=== PATIENT | female | born 1965 | race Two or more races ===

== ENCOUNTER 2020-03-31 10:13 | Outpatient (REF) | payer OTHER, SELFPAY | END 2020-03-31 10:14 | disposition home or self-care (01) | LOC: HO.LAB 10:13 | PROVIDERS: Visit Provider Internal Medicine | DX: Z20.822 Contact with and (suspected) exposure to COVID-19 (principal) | CPT/HCPCS: 36415; C9803; U0003 ==

== ENCOUNTER 2020-12-01 13:38 | Outpatient (REF) | payer OTHER, SELFPAY ==
--- NOTE | ~2020-12-01 | MM_ITS ---
EXAMINATION: MM SCREENING DIGITAL BREAST TOMOSYNTHESIS, BILATERAL CLINICAL INFORMATION: Screening. Asymptomatic. The lifetime risk of breast cancer based on the Tyrer-Cuzick Model is 6%. COMPARISON: Mammography: 11/18/2017, 11/12/2016, 07/23/2015 TECHNIQUE: Digital breast tomosynthesis is performed in both the craniocaudal and mediolateral oblique views along with computer-aided detection (CAD). Synthesized 2D images are generated from the tomosynthesis. FINDINGS: There are scattered areas of fibroglandular density (ACR BI-RADS breast composition Category b). There are no significant masses, abnormal calcifications, or other abnormalities. The axilla are unremarkable. There is a small dermal lesion overlying the upper outer right breast. MM/MM tomosynthesis screening BI IMPRESSION: No mammographic evidence of malignancy. ASSESSMENT: BI-RADS 2: Benign RECOMMENDATION: Routine annual mammography screening. This patient's information was entered into a reminder system with a target due date for their next mammogram.
== END 2020-12-01 13:39 | disposition home or self-care (01) ==
LOC: HO.MAMMO 13:38
PROVIDERS: Visit Provider Internal Medicine Geriatric Medicine
DX: Z12.31 Encounter for screening mammogram for malignant neoplasm of breast (principal)
CPT/HCPCS: 77063; 77067

== ENCOUNTER 2021-03-12 13:36 | Outpatient (REF) | payer OTHER, SELFPAY ==
[2021-03-12 16:04] LABS: Binax Now Covid-19 Ag Positive (Negative)
[2021-03-12 16:05] LABS: Binax Internal Control QC Valid
== END 2021-03-12 13:37 | disposition home or self-care (01) ==
LOC: HO.LAB 13:36
PROVIDERS: Visit Provider Internal Medicine
DX: Z20.822 Contact with and (suspected) exposure to COVID-19 (principal)
CPT/HCPCS: 36415; C9803

== ENCOUNTER 2021-12-18 15:11 | Outpatient (REF) | payer OTHER, SELFPAY ==
--- NOTE | ~2021-12-18 | MM_ITS ---
EXAMINATION: MM SCREENING DIGITAL BREAST TOMOSYNTHESIS, BILATERAL CLINICAL INFORMATION: Screening. Asymptomatic. The lifetime risk of breast cancer based on the Tyrer-Cuzick Model is 6%. COMPARISON: Mammography: 12/01/2020, 11/18/2017, 11/12/2016 TECHNIQUE: Digital breast tomosynthesis is performed in both the craniocaudal and mediolateral oblique views along with computer-aided detection (CAD). Synthesized 2D images are generated from the tomosynthesis. Additional right CC view is provided. FINDINGS: There are scattered areas of fibroglandular density (ACR BI-RADS breast composition Category b). There are no significant masses, abnormal calcifications, or other abnormalities. Parenchymal pattern is similar to prior studies. No developing density or architectural abnormality. Dermal lesion is again noted overlying the upper right breast. MM/MM tomosynthesis screening BI IMPRESSION: No mammographic evidence of malignancy. ASSESSMENT: BI-RADS 2: Benign RECOMMENDATION: Routine annual mammography screening. This patient's information was entered into a reminder system with a target due date for their next mammogram.
== END 2021-12-18 15:12 | disposition home or self-care (01) ==
LOC: HO.MAMMO 15:11
PROVIDERS: Visit Provider Internal Medicine Geriatric Medicine
DX: Z12.31 Encounter for screening mammogram for malignant neoplasm of breast (principal)
CPT/HCPCS: 77063; 77067

== ENCOUNTER 2022-09-21 15:23 | Outpatient (REF) | payer OTHER, SELFPAY ==
[2022-09-21 16:07] LABS: MANUAL DIFF FLAG NO
[2022-09-21 16:42] LABS: Basophils Percent Auto 0.4 % (0-2); Eosinophils Absolute Auto 0.2 X10*3/uL (0.0-0.4); Eosinophils Percent Auto 2.6 % (0-4); Hematocrit 37.6 % (37.0-47.0); Imm Gran Abs Auto 0.02 X10*3/uL (0.00-0.03); Imm Gran Pct Auto 0.3 % (0.0-0.4); Lymphocytes Absolute Auto 1.5 X10*3/uL (1.2-4.9); Mean Corpuscular HGB Conc 31.9 g/dl (31.0-35.0); Mean Corpuscular Hemoglobin 26.7 pg (27.0-33.0); Mean Corpuscular Volume 83.6 fL (80.0-98.0); Mean Platelet Volume 10.5 fL (9.4-12.3); Monocytes Absolute Auto 0.5 X10*3/uL (0.1-1.2); Monocytes Percent Auto 6.5 % (2-11); Neutrophils Absolute Auto 4.9 x10*3/uL (2.0-8.3); Neutrophils Percent Auto 69.2 % (45-73); Platelet Count 202 X10*3/uL (160-400); Red Cell Distribution Width 13.5 % (11.0-16.0); White Blood Count 7.1 X10*3/uL (4.8-10.8)
[2022-09-21 17:04] LABS: Anion Gap 12 (12-20); Blood Urea Nitrogen 12 mg/dL (9-16); Calcium 9.8 mg/dL (8.4-10.2); Carbon Dioxide 29 mmol/L (22-29); Chloride 102 mmol/L (96-108); Estimated Glomerular Filt Rate > 60; Glucose Random 99 mg/dL (60-115); Potassium 3.7 mmol/L (3.3-5.1); Sodium 139 mmol/L (135-145)
[2022-09-22 05:25] LABS: Estimated Average Glucose 131 mg/dL; Hemoglobin A1c % 6.2 %
[2022-09-23 17:08] LABS: TS Negative Control Passed; TS Panel A 0; TS Panel B 2; TS Positive Control Passed; TSpotTB Negative (Negative)
== END 2022-09-21 15:24 | disposition home or self-care (01) ==
LOC: HO.HHCL 15:23
PROVIDERS: Visit Provider Internal Medicine Geriatric Medicine
DX: Z11.1 Encounter for screening for respiratory tuberculosis (principal); R73.03 Prediabetes; Z79.1 Long term (current) use of non-steroidal anti-inflammatories (NSAID)
CPT/HCPCS: 36415; 80048; 83036; 85025; 86481

== ENCOUNTER 2024-01-05 10:22 | Outpatient (REF) | payer OTHER, SELFPAY ==
[2024-01-05 11:33] LABS: Anion Gap 10 (12-20); Blood Urea Nitrogen 16 mg/dL (9-16); Calcium 9.5 mg/dL (8.4-10.2); Carbon Dioxide 27 mmol/L (22-29); Chloride 104 mmol/L (96-108); Estimated Glomerular Filt Rate > 60; Glucose Random 117 mg/dL (60-115); Potassium 3.7 mmol/L (3.3-5.1); Sodium 137 mmol/L (135-145)
[2024-01-05 12:01] LABS: Creatinine Urine 226.01 mg/dL; Microalbum/Creatinine Ratio Ur 7.5 ug/mg cr (<30)
== END 2024-01-05 10:23 | disposition home or self-care (01) ==
LOC: HO.HHCL 10:22
PROVIDERS: Visit Provider Internal Medicine Geriatric Medicine
DX: E11.9 Type 2 diabetes mellitus without complications (principal)
CPT/HCPCS: 36415; 80048; 82043; 82570

== ENCOUNTER 2024-05-01 12:29 | Outpatient (REF) | payer OTHER, SELFPAY ==
[2024-05-01 13:58] LABS: Alanine Aminotransferase 15 U/L (0-31); Albumin Level 4.3 g/dL (3.5-5.0); Alkaline Phosphatase 57 U/L (39-117); Aspartate Amino Transferase 23 U/L (5-31); Bilirubin Direct 0.1 mg/dL (0.0-0.5); Bilirubin Total 0.3 mg/dL (0.0-1.0); Cholesterol 174 mg/dL (<200); HDL Cholesterol 63 mg/dL (>40); LDL Cholesterol Calculated 98 mg/dL (<100); Total Protein 7.6 g/dL (6.5-8.0); Triglycerides 66 mg/dL (<150)
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
--- OUTSIDE RECORDS SUMMARY | 2024-05-01 15:09 | XMS_ITS | Encounter Summary ---
Author Organization [email or web address] Address [address] [facility] [address] [place] [address] Care Team Providers Care Vice President Of News Name Role Phone Name, Andrés FIERRO Primary Care Provider [phone] Catarina Sorensen PharmD Unavailable [phone] Reason for Visit * Reason Onset Date Comments Reschedule 01/12/2023 Encounter Details Date Type Department Care Team ([facility] st Contact Info) Description 01/12/[address] [facility] [address] [place], [place] [phone] Name, MD Andrés [address] [place] [address] Reschedule Social History Tobacco Use Types Packs/Day Years Used Date Smoking Tobacco: Never Smokeless Tobacco: Never Alcohol Use Standard Drinks/Week Comments Yes 0 (1 standard drink = 0.6 oz pur e alcohol) occassional Depression Answer Date Recorded Patient Health Questionnaire-9 Score 0 09/21/2022 Housing Stability Answer Date Recorded What is your housing situation today? I have dyllan stark 12/20/[address] you li ve. Do you have problems with any of the following? None of the above 12/20/2022 Food Insecurity Answer Date Recorded Within the past 12 months, y ou worried that your food would run out before you got money to buy more: Never True 12/20/2022 Within the past 12 months,th e food you bought just didn't last and you didn't have enough money to get more: Never True Transportation Answer Date Recorded In the past 12 months, has l ack of transportation kept you from medical appts, meetings, work or from getting things needed for daily living? No 12/20/2022 Utilities Answer Date Recorded In the past 12 months, has t he electric, gas, oil or water company threatened to shut off services in your home? No 12/20/2022 Depression Answer Date Recorded Patient Health Questionnaire-2 Score 0 09/21/2022 Comments Unknown Sex and Gender Information Value Date Recorded Sex Assigned at Female 01/04/2022 10:17 AM EDT Legal Sex Female 10:17 AM EDT Gender Identity Female 01/04/2022 10:17 AM EDT Sexual Orientation Straight 01/04/2022 10 :17 AM EDT documented as of this encounter Miscellaneous Notes * Telephone Encounter - Kandice Lawson - 01/12/2023 2:50 PM EST Tc from pt requesting r/s 01/12/2023 F/U appt pattern chart writer attempted to schedule no availability at the moment. documented in this encounter Plan of Treatment Upcoming Encounters Date Type Department Care Team (Late st Contact Info) Description 05/17/2024 1:30 PM EDT Office Visit [facility] [address] [place] [address] Carlos, Ijeoma, OD [address] [place] [address] 05/28/2024 1:00 PM EDT Office Visit [facility] ADULT DENTAL [address] [place] [address] Ping, Cyndee [address] [place] [address] 06/15/2024 10:15 AM EDT Office Visit [facility] [address] [place] [address] NameAndrés MD [address] [place] [address] documented as of this encounter Visit Diagnoses Not on filedocumented in this encounter Additional Health Concerns Assessment Noted Time PHQ-9 Depression Total Score: 0 09/22/19 23 2:31 PM EDT documented as of this encounter Care Teams Vice President Of News Relationship Specialty Start Date End Date NameAndrés MD [address] [place] [phone] PCP - General Family Medicine 07/02/15 Catarina Sorensen, Yordy [address] [place] [phone] Pharmacist Internal Medicine 01/27/24 04/02/24 documented as of this encounter
--- OUTSIDE RECORDS SUMMARY | 2024-05-01 15:09 | XMS_ITS | Encounter Summary ---
Author Organization [facility] Address [address] [facility] 7 [place] [address] Care Team Providers Care Sales Professional Name Role Phone Name, Andrés FIERRO Primary Care Provider [phone] Reason for Referral * Imaging (Routine) - Pending Review Specialty Diagnoses / Procedures Referred By Contac t Referred To Contact Radiology Diagnoses Breast cancer screening by mammogram Procedures BI Mammogram Screening Tomosynthesis Bilateral Elise Gonzales CNM [address] [place] [address] Phone: tel: fax: Referral ID Status Reason Start Date Expiration Date V isits Requested Visits Authorized [id number] Pending Review 05/01/2024 05/01/2025 1 1 Reason for Visit * Reason Comments Gynecologic Exam Encounter Details Date Type Department Care Team (Latest Contact Info) Description 05/01/2024 1:45 PM EST Procedure Visit [facility] MEDICINE [address], [place] [phone] Elise Gonzales CNM [address], [place] [phone] Cervical cancer screening (Primary Dx); Encounter for immunization; Postmenopausal bleeding; Breast cancer screening by mammogram Social History Tobacco Use Types Packs/Day Years [...] AM EDT documented as of this encounter Last Filed Vital Signs Vital Sign Reading [...] Mass Index 28.13 05/01/2024 1:24 PM EST documented in this encounter Progress Notes * Elise Gonzales, CNM - 05/01/2024 1:45 PM EST Subjective Patient ID: Natacha Villasenor is a 59 y.o. female who presents for pap Last visit with me in 2020. Pap NIL/HPV neg 09/2015, 04/2019. s/p BTL. Referred to Dr Bran in 2019 for postmenopausal bleeding with thickened endometrium on pelvic ultrasound. No records in chart. She thinks she had one appointment with him, but doesn't remember having any biopsy. No further bleeding. No SUEDE BRUSHER concerns today. Hasn't had mammogram in past year. History of right knee injury vs fracture in 2013 after falling down stairs. No other fracture, no parental hip fracture. Lives with son who has Down Syndrome, feels safe at home. Not sexually active, no current partner. Review of Systems Genitourinary: Negative for dysuria, frequency, genital sores, hematuria, menstrual problem, pelvicpain, urgency, vaginal bleeding, vaginal discharge and vaginal pain. No abnormal pap, no abnormal bleeding, no breast pain, no breast mass, no nipple discharge Objective BP 124/72 (BP Location: Left arm, Patient Position: Sitting, BP Cuff Size: Adult) Pulse 63 Temp97.9 ??F (36.6 ??C) (Temporal) Resp 18 Ht 5' 2 (1.575 m) Wt 153 lb 12.8 oz (69.8 kg) SpO2 100% BMI 28.13 kg/m?? Physical Exam Constitutional: Appearance: Normal appearance. Chest: Breasts: Right: Normal. No swelling, bleeding, inverted nipple, mass, nipple discharge, skin change or tenderness. Left: Normal. No swelling, bleeding, inverted nipple, mass, nipple discharge, skin change or tenderness. Genitourinary: General: Normal vulva. Labia: Right: No rash, tenderness, lesion or injury. Left: No rash, tenderness, lesion or injury. Vagina: Normal. No signs of injury and foreign body. No vaginal discharge, erythema, tenderness, bleeding or lesions. Cervix: No cervical motion tenderness, discharge, friability, lesion, erythema, cervical bleeding or eversion. Uterus: Normal. Not enlarged and not tender. Adnexa: Right adnexa normal and left adnexa normal. Right: No mass, tenderness or fullness. Left: No mass, tenderness or fullness. Comments: Ovaries non palpable bilaterally. Good tone with Kegels, no prolapse with Valsalva Lymphadenopathy: Upper Body: Right upper body: No supraclavicular or axillary adenopathy. Left upper body: No supraclavicular or axillary adenopathy. Neurological: Mental Status: She is alert. Psychiatric: Mood and Affect: Mood normal. Behavior: Behavior normal. Assessment/Plan Diagnoses and all orders for this visit: Cervical cancer screening - Pap Smear Cotest today, repeat 5 y if normal/HPV neg. Will contact with results. Routine mammography. Report bleeding. BMD at 65, sooner if new risk factors. Encounter for immunization - HEPATITIS B VACCINE ADULT 20 yrs + Hep B #2 today, has appt for 3rd dose in September. Postmenopausal bleeding No further recurrence. Will request records from Dr. Bran's office. Repeat ultrasound if indicatedby records. Breast cancer screening by mammogram - BI Mammogram Screening Tomosynthesis Bilateral; Future Screening mammogram ordered. documented in this encounter Plan of Treatment Upcoming Encounters Date Type Department Care Team (Late st Contact Info) Description 05/17/2024 1:30 PM EDT Office Visit [facility] OPTOMETRY [address] [place] [address] Carlos, Ijeoma, OD [address] [place] [address] 05/28/2024 1:00 PM EDT Office Visit [facility] ADULT DENTAL [address] [place] [address] Ping, Cyndee [address] [place] [address] 06/15/2024 10:15 AM EDT Office Visit [facility] MEDICINE [address] [place] [address] Name, MD Andrés [address] [place] [address] Scheduled Orders Name Type Priority Associated Diagnoses Order Schedule Pap Smear Pathology and Cytology Routine Cervical cancer screening Ordered: 05/01/2024 BI Mammogram Screening Tomosynthesis Bilateral Imaging Routine Breast cancer screening by mammogram Expected: 05/01/2024, Expires: 06/29/2025 documented as of this encounter Visit Diagnoses Diagnosis Cervical cancer screening- Primary Screening for malignant neoplasm of the cervix Encounter for immunization Postmenopausal bleeding Breast cancer screening by mammogram documented in this encounter Additional Health Concerns Assessment Noted Time PHQ-9 Depression Total Score: 0 09/22/19 23 2:31 PM EDT documented as of this encounter Care Teams Sales Professional Relationship Specialty Start Date End Date Name, MD Andrés [address] [place] [address] PCP - General Family Medicine 07/02/15 documented as of this encounter
--- OUTSIDE RECORDS SUMMARY | 2024-05-01 15:09 | XMS_ITS | Encounter Summary ---
Author Organization [employer] Address [address] [facility] 7t [place] [address] Care Team Providers Care Vibration Engineer Name Role Phone Name, Andrés FIERRO Primary Care Provider [phone] Encounter Details Date Type Department Care Team (Latest Contact Info) Description 05/01/2024 Travel Social History Tobacco Use Types Packs/Day Years [...] AM EDT documented as of this encounter Plan of Treatment Upcoming Encounters Date Type Department Care Team (Late st Contact Info) Description 05/17/2024 1:30 PM EDT Office Visit [facility] OPTOMETRY [address] [place] [address] Carlos, Ijeoma, OD [address] [place] [address] 05/28/2024 1:00 PM EDT Office Visit [facility] ADULT DENTAL [address] [place] [address] Ping, Cyndee [address] [place] [address] 06/15/2024 10:15 AM EDT Office Visit [facility] MEDICINE [address] [place] [address] NameAndrés MD [address] [place] [address] documented as of this encounter Visit Diagnoses Not on filedocumented in this encounter Additional Health Concerns Assessment Noted Time PHQ-9 Depression Total Score: 0 09/22/19 23 2:31 PM EDT documented as of this encounter Care Teams Vibration Engineer Relationship Specialty Start Date End Date NameAndrés MD [address] [place] [address] PCP - General Family Medicine 07/02/15 documented as of this encounter
--- OUTSIDE RECORDS SUMMARY | 2024-05-01 15:09 | XMS_ITS | Encounter Summary ---
Author Organization [employer] [facility] Address [address] [place] [address] 7 [place] [address] Care Team Providers Care Shopping Centre Manager Name Role Phone Name, Andrés FIERRO Primary Care Provider [phone] Catarina Sorensen PharmD Unavailable [phone] Encounter Details Date Type Department Care Team (Latest Contact Info) Description 10/09/2020 Abstract [facility] CONVERSIONS Dental, Provider, DDS Social History Tobacco Use Types Packs/Day Years Used Date Smoking Tobacco: Never Assessed Comments Unknown Sex and Gender Information Value [...] Description 05/17/2024 1:30 PM EDT Office Visit [facility] OPTOMETRY [address] [place] [address] Carlos, Ijeoma, OD [address] [place] [address] 05/28/2024 1:00 PM EDT Office Visit [facility] ADULT DENTAL [address] [place] [address] Ping, Cyndee [address] [place] [address] 06/15/2024 10:15 AM EDT Office Visit [facility] MEDICINE [address] [place] [address] Name, MD Andrés [address] [place] [address] documented as of this encounter Visit Diagnoses Not on filedocumented in this encounter Care Teams Shopping Centre Manager Relationship Specialty Start Date End Date Name, MD Andrés [address] [place], [place] [phone] PCP - General Family Medicine 07/02/15 Catarina Sorensen PharmD [address] [place] [address] Pharmacist Internal Medicine 01/27/24 04/02/24 documented as of this encounter
--- OUTSIDE RECORDS SUMMARY | 2024-05-01 15:09 | XMS_ITS | Encounter Summary ---
Author Organization [employer] Address [address] [facility] 7t [place] [address] Care Team Providers Care Try Out Person Name Role Phone Name, Andrés FIERRO Primary Care Provider Reason for Visit * Reason Comments Med Refill Encounter Details Date Type Department Care Team (Late st Contact Info) Description 04/12/2024 Refill [facility] MEDICINE [address] [place], [place] [phone] Name, MD Andrés [address] [place] [address] New onset type 2 diabetes mellitus (CMS/HCC) Social History Tobacco Use Types Packs/Day Years [...] Access Q2 Not on file 12/29/2023 Comments Unknown Sex and Gender Information Value [...] Description 05/17/2024 1:30 PM EDT Office Visit [facility] OPTOMETRY [address] [place] [address] Carlos, Ijeoma, OD [address] [place] [address] 05/28/2024 1:00 PM EDT Office Visit [facility] ADULT DENTAL [address] [place] [address] Ping, Cyndee [address] [place] [address] 06/15/2024 10:15 AM EDT Office Visit [facility] MEDICINE [address] [place] [address] NameAndrés MD [address] [place] [address] documented as of this encounter Visit Diagnoses Diagnosis New onset type 2 diabetes mellitus (CMS/HCC) documented in this encounter Additional Health Concerns Assessment Noted Time PHQ-9 Depression Total Score: 0 09/22/19 23 2:31 PM EDT documented as of this encounter Care Teams Try Out Person Relationship Specialty Start Date End Date Andrés Hennessy MD [address] [place] [address] PCP - General Family Medicine 4/27/16 documented as of this encounter
--- OUTSIDE RECORDS SUMMARY | 2024-05-01 15:09 | XMS_ITS | Encounter Summary ---
Author Organization [employer] [facility] Address [address] [facility] 7 [place] [address] Care Team Providers Care Price Checker Name Role Phone Name, Andrés FIERRO Primary Care Provider [phone] Catarina Sorensen PharmD Unavailable [phone] Encounter Details Date Type Department Care Team (Latest Contact Info) Description 08/27/2021 Abstract [facility] CONVERSIONS Dental, Provider, DDS Social History Tobacco [...] Description 05/17/2024 1:30 PM EDT Office Visit [facility] OPTOMETRY [address] [place] [address] Carlos, Ijeoma, OD [address] [place] [address] 05/28/2024 1:00 PM EDT Office Visit [facility] ADULT DENTAL [address] [place] [address] Ping, Cyndee [address] [place] [address] 06/15/2024 10:15 AM EDT Office Visit [facility] MEDICINE [address] [place] [address] Name, MD Andrés [address] [place] [address] documented as of this encounter Visit Diagnoses Not on filedocumented in this encounter Care Teams Price Checker Relationship Specialty Start Date End Date Name, MD Andrés [address] [place], [place] [phone] PCP - General Family Medicine 07/02/15 Catarina Sorensen PharmD [address] [place] [address] Pharmacist Internal Medicine 01/27/24 04/02/24 documented as of this encounter
--- OUTSIDE RECORDS SUMMARY | 2024-05-01 15:09 | XMS_ITS | Encounter Summary ---
Author Organization [employer] [facility] Address [address] [facility] 7t [place] [address] Care Team Providers Care Delivery And Mail Sorter Name Role Phone Name, Andrés FIERRO Primary Care Provider [phone] Catarina Sorensen PharmD Unavailable [phone] Encounter Details Date Type Department Care Team ([facility] Contact Info) Description 08/05/2022 Abstract [facility] MEDICINE [address] [place], [place] [phone] Name, MD Andrés [address] [place] [address] Social History Tobacco Use Types Packs/Day Years Used Date Smoking Tobacco: Never Smokeless Tobacco: Never Alcohol Use Standard Drinks/Week Comments Not Currently 0 (1 standard drink = 0.6 oz pur e alcohol) Comments Unknown Sex and Gender Information Value Date Recorded Sex Assigned at Female 01/04/2022 10:17 AM EDT Legal Sex Female 10:17 AM EDT Gender Identity Female 01/04/2022 10:17 AM EDT Sexual Orientation Straight 01/04/2022 10 :17 AM EDT COVID-19 Exposure Response Date Recorded In the last 10 days, have yo u been in contact with someone who was confirmed or suspected to have Coronavirus/COVID-19? No / Unsure 07/16/2022 9:10 AM EDT documented as of this encounter Plan of Treatment Upcoming Encounters Date Type Department Care Team (Late Contact Info) Description 05/17/2024 1:30 PM EDT Office Visit [facility] OPTOMETRY [address] [place], [place] [phone] Carlos, Ijeoma, OD [address] [place], [place] [phone] 05/28/2024 1:00 PM EDT Office Visit [facility] ADULT DENTAL [address] [place] [address] Andrés Fengaris [address] [place], [place] [phone] 06/15/2024 10:15 AM EDT Office Visit [facility] MEDICINE [address] [place] [address] Name, MD Andrés [address] [place] [address] documented as of this encounter Procedures Procedure Name Priority Date/Time Associated Diagnosis Comments HM PAP/HPV Routine 04/26/2019 12:00 AM EST HM COLONOSCOPY Routine 12/09/2016 3:46 PM EDT documented in this encounter Results * Hm Pap Smear (04/26/2019 12:00 AM EST) us Historical Provider HEALTH MAINTENANCE Final Result * Hm Colonoscopy (12/09/2016 3:46 PM EDT) Colonoscopy Normal Normal Narrative Shirley Bass - 12/09/2016 3:46 PM EDT Recommended 10 year follow up us Historical Provider HEALTH MAINTENANCE Final Result documented in this encounter Visit Diagnoses Not on filedocumented in this encounter Care Teams Delivery And Mail Sorter Relationship Specialty Start Date End Date Name, MD [place] [place] [address] PCP - General Family Medicine 07/02/15 Catarina Sorensen, Yordy [address] [place] [address] Pharmacist Internal Medicine 01/27/24 04/02/24 documented as of this encounter
--- OUTSIDE RECORDS SUMMARY | 2024-05-01 15:09 | XMS_ITS | Encounter Summary ---
Author Organization [employer] Address [address] [facility] 7t [place] [address] Care Team Providers Care Reinforcing Bar Setter Name Role Phone Name, Andrés FIERRO Primary Care Provider Reason for Visit * Reason Comments Med Refill Encounter Details Date Type Department Care Team (Late st Contact Info) Description 04/17/2024 Refill [facility] MEDICINE [address] [place], [place] [phone] Name, MD Andrés [address] [place] [address] Social History Tobacco Use Types Packs/Day Years [...] Description 05/17/2024 1:30 PM EDT Office Visit [facility] OPTOMETRY [address] [place] [address] Carlos, Ijeoma, OD [address] [place] [address] 05/28/2024 1:00 PM EDT Office Visit [facility] ADULT DENTAL [address] [place] [address] Ping, Cyndee [address] [place] [address] 06/15/2024 10:15 AM EDT Office Visit [facility] MEDICINE [address] [place] [address] NameAndrés MD [address] [place] [address] documented as of this encounter Visit Diagnoses Not on filedocumented in this encounter Additional Health Concerns Assessment Noted Time PHQ-9 Depression Total Score: 0 09/22/19 23 2:31 PM EDT documented as of this encounter Care Teams Reinforcing Bar Setter Relationship Specialty Start Date End Date Andrés Hennessy MD [address] [place] [address] PCP - General Family Medicine 07/02/15 documented as of this encounter
--- OUTSIDE RECORDS SUMMARY | 2024-05-01 15:09 | XMS_ITS | Encounter Summary ---
Author Organization [employer] [facility] Address [address] [facility] 7t [place] [address] Care Team Providers Care Machine Sneller Name Role Phone Name, Andrés FIERRO Primary Care Provider [phone] Catarina Sorensen PharmD Unavailable [phone] Encounter Details Date Type Department Care Team ([facility] Contact Info) Description 06/14/2022 Orders Only [facility] MEDICINE [address] [place], [place] [phone] Name, MD Andrés [address] [place] [address] Social History Tobacco Use Types Packs/Day Years [...] suspected to have Coronavirus/COVID-19? No / Unsure 05/31/2022 1:07 PM EDT documented as of this encounter Plan of Treatment Upcoming Encounters Date Type Department Care Team ([facility] Contact Info) Description 05/17/2024 1:30 PM EDT Office Visit [facility] OPTOMETRY [address] [place], [place] [phone] Carlos, Ijeoma, OD [address] [place] [address] 05/28/2024 1:00 PM EDT Office Visit [facility] ADULT DENTAL [address] [place] [address] Andrés Fengaris [address] [place] [address] 06/15/2024 10:15 AM EDT Office Visit [facility] MEDICINE [address] [place] [address] Name, MD Andrés [address] [place] [address] documented as of this encounter Visit Diagnoses Not on filedocumented in this encounter Care Teams Machine Sneller Relationship Specialty Start Date End Date Name, MD [place] [address] PCP - General Family Medicine 07/02/15 Catarina Sorensen PharmD [address] [place] [address] Pharmacist Internal Medicine 01/27/24 04/02/24 documented as of this encounter
--- OUTSIDE RECORDS SUMMARY | 2024-05-01 15:09 | XMS_ITS | Encounter Summary ---
Author Organization [employer] [facility] Address [address] [place] [address] 7 [place] [address] Care Team Providers Care Fill Plant Operator Name Role Phone Name, Andrés FIERRO Primary Care Provider [phone] Catarina Sorensen PharmD Unavailable [phone] Reason for Visit * Reason Comments Med Refill Encounter Details Date Type Department Care Team (Late st Contact Info) Description 10/08/2022 Refill [facility] MEDICINE [address] [place] [address] Name, MD Andrés [address] [place] [address] Social History Tobacco Use Types Packs/Day Years Used Date Smoking Tobacco: Never Smokeless Tobacco: Never Alcohol Use Standard Drinks/Week Comments Yes 0 (1 standard drink = 0.6 oz pur e alcohol) occassional Depression Answer Date Recorded Patient Health Questionnaire-9 Score 0 09/21/2022 Depression Answer Date Recorded Patient Health Questionnaire-2 [...] Description 05/17/2024 1:30 PM EDT Office Visit [facility] OPTOMETRY [address] [place], [place] [phone] Carlos, Ijeoma, OD [address] [place] [address] 05/28/2024 1:00 PM EDT Office Visit [facility] ADULT DENTAL [address] [place] [address] Cyndee Feng [address] [place], [place] [phone] 06/15/2024 10:15 AM EDT Office Visit [facility] MEDICINE [address] [place] [address] Name, MD Andrés [address] [place] [address] documented as of this encounter Visit Diagnoses Not on filedocumented in this encounter Additional Health Concerns Assessment Noted Time PHQ-9 Depression Total Score: 0 09/22/19 23 2:31 PM EDT documented as of this encounter Care Teams Fill Plant Operator Relationship Specialty Start Date End Date Name, MD Andrés [address] [place] [address] PCP - General Family Medicine 07/02/15 Catarina Sorensen PharmD [address] [place] [address] Pharmacist Internal Medicine 01/27/24 04/02/24 documented as of this encounter
--- OUTSIDE RECORDS SUMMARY | 2024-05-01 15:09 | XMS_ITS | Encounter Summary ---
Author Organization [employer] Address [address] [facility] 7t [place] [address] Care Team Providers Care Environmental Planner Name Role Phone Name, Andrés FIERRO Primary Care Provider [phone] Encounter Details Date Type Department Care Team (Late st Contact Info) Description 05/01/2024 Orders Only [facility] MEDICINE [address] [place], [place] [phone] Name, MD Andrés [address] [place] [address] Social History Tobacco Use Types Packs/Day Years [...] Description 05/17/2024 1:30 PM EDT Office Visit [facility] OPTOMETRY [address] [place] [address] Carlos, Ijeoma, OD [address] [place] [address] 05/28/2024 1:00 PM EDT Office Visit [facility] ADULT DENTAL [address] [place] [address] Ping, Cyndee [address] [place] [address] 06/15/2024 10:15 AM EDT Office Visit [facility] MEDICINE [address] [place] [address] Name, MD Andrés [address] [place] [address] documented as of this encounter Procedures Procedure Name Priority Date/Time Associated Diagnosis Comments HEPATIC FUNCTION PANEL Routine 05/01/2024 12:30 PM EST LIPID PANEL, STANDARD Routine 05/01/2024 12:30 PM EST documented in this encounter Results * Lipid Panel, Standard (05/01/2024 12:30 PM EST) Triglycerides 66 <150 mg/dL [facility] Comment:Desirable Triglyceri de: less than 150 mg/dLBorderline High Triglyceride 150-199 mg/dLHigh Triglyceride: 200-499 mg/dLVery High Triglyceride: greater than or equal to 5OO mg/dL Cholesterol 174 <200 mg/dL [facility] Comment:Desirable Cholestero l: less than 200 mg/dLBorderline High Cholesterol: 200-239 mg/dLHigh Cholesterol: greater than 239 mg/dL LDL Cholesterol Calculated 98 <100 mg/dL [facility] Comment:Desirable LDL: less than 100 mg/dLNear Optimal/Above Optimal LDL: 110- 129 mg/dLBorderline High LDL: 130-159 mg/dLHigh LDL: 160-189 mg/dLVery High LDL: greater than or equal to 190 mg/dL HDL Cholesterol 63 >40 mg/dL [facility] Comment:Desirable HDL: great er than 40 mg/dL Note: This HDL assay may give artificially low results in patients with liver disease. 05/01/2024 12:3 0 PM EST 05/01/2024 1:06 PM EST Andrés Hennessy MD LAB BLOOD ORDERABLES Final Resul t [facility] [address] [place] [phone] * Hepatic Function Panel (05/01/2024 12:30 PM EST) Bilirubin, Total 0.3 0.0 - 1.0 mg/dL [facility] Bilirubin, Direct 0.1 0.0 - 0.5 mg/dL [facility] Aspartate Amino Transferase 23 5 - 31 U/L [facility] Alanine Aminotransferase 15 0 - 31 U/L [facility] Total Protein 7.6 6.5 - 8.0 g/dL [facility] Albumin Level 4.3 3.5 - 5.0 g/dL [facility] Alkaline Phosphatase 57 39 - 117 U/L [facility] 05/01/2024 12:3 0 PM EST 05/01/2024 1:06 PM EST Andrés Hennessy MD LAB BLOOD ORDERABLES Final Resul t [facility] [address] [place] [address] [phone] documented in this encounter Visit Diagnoses Not on filedocumented in this encounter Additional Health Concerns Assessment Noted Time PHQ-9 Depression Total Score: 0 09/22/19 23 2:31 PM EDT documented as of this encounter Care Teams Environmental Planner Relationship Specialty Start Date End Date Name, MD Andrés [address] [place] [address] PCP - General Family Medicine 07/02/15 documented as of this encounter
--- OUTSIDE RECORDS SUMMARY | 2024-05-01 15:09 | XMS_ITS | Encounter Summary ---
Author Organization [email or web address] [facility] Address [address] [place] [address] 7 [place] [address] Care Team Providers Care Farm Field Manager Name Role Phone Name, Andrés FIERRO Primary Care Provider [phone] Catarina Sorensen PharmD Unavailable [phone] Encounter Details Date Type Department Care Team (Latest Contact Info) Description 02/14/2019 Abstract [facility] Dental, Provider, DDS Social History Tobacco [...] Description 05/17/2024 1:30 PM EDT Office Visit [facility] OPTOMETRY [address] [place] [address] Carlos, Ijeoma, OD 230 [place] [address] 05/28/2024 1:00 PM EDT Office Visit [facility] ADULT DENTAL 230 [place] [address] Ping, Cyndee 230 [place] [address] 06/15/2024 10:15 AM EDT Office Visit [facility] MEDICINE 230 [place] [address] Name, MD Andrés 230 [place] [address] documented as of this encounter Visit Diagnoses Not on filedocumented in this encounter Care Teams Farm Field Manager Relationship Specialty Start Date End Date Name, MD Andrés 230 [place] [address] PCP - General Family Medicine 07/02/15 Catarina Sorensen PharmD 230 [place] [address] Pharmacist Internal Medicine 01/27/24 04/02/24 documented as of this encounter
== END 2024-05-01 12:30 | disposition home or self-care (01) ==
LOC: HO.HHCL 12:29
PROVIDERS: Visit Provider Internal Medicine Geriatric Medicine
DX: E11.9 Type 2 diabetes mellitus without complications (principal); K76.0 Fatty (change of) liver, not elsewhere classified
CPT/HCPCS: 36415; 80061; 80076

== ENCOUNTER 2024-05-01 16:44 | Outpatient (REF) | payer OTHER, SELFPAY ==
--- OUTSIDE RECORDS SUMMARY | 2024-05-01 19:51 | XMS_ITS | Encounter Summary ---
Author Organization [employer] [facility] Address [address] [place] [address] 7 [place] [address] Care Team Providers Care Light Cleaner Name Role Phone Name, Andrés FIERRO Primary Care Provider [phone] Catarina Sorensen PharmD Unavailable [phone] Reason for Visit * Reason Comments Med Refill Encounter Details Date Type Department Care Team (Late st Contact Info) Description 10/08/2022 Refill [facility] MEDICINE 230 [place] [address] Name, MD Andrés 230 [place] [address] Social History Tobacco Use Types Packs/Day Years [...] 05/17/2024 1:30 PM EDT Office Visit [facility] OPTOMETRY [address] [place], [place] [phone] Carlos, Ijeoma, OD 230 [place] [address] 05/28/2024 1:00 PM EDT Office Visit [facility] ADULT DENTAL 230 [place] [address] Cyndee Feng 230 [place], [place] [phone] 06/15/2024 10:15 AM EDT Office Visit [facility] MEDICINE [address] [place] [address] Name, MD Andrés [address] [place] [address] documented as of this encounter Visit Diagnoses Not on filedocumented in this encounter Additional Health Concerns Assessment Noted Time PHQ-9 Depression Total Score: 0 09/22/19 23 2:31 PM EDT documented as of this encounter Care Teams Light Cleaner Relationship Specialty Start Date End Date Name, MD Andrés [address] [place] [address] PCP - General Family Medicine 07/02/15 Catarina Sorensen PharmD [address] [place] [address] Pharmacist Internal Medicine 01/27/24 04/02/24 documented as of this encounter
--- OUTSIDE RECORDS SUMMARY | 2024-05-01 19:51 | XMS_ITS | Encounter Summary ---
Author Organization [employer] Address [address] [facility] 7t [place] [address] Care Team Providers Care Commercial Cleaner Name Role Phone Name, Andrés FIERRO Primary Care Provider [phone] Catarina Sorensen PharmD Unavailable [phone] Reason for Visit * Reason Onset Date Comments Reschedule 01/12/2023 Encounter Details Date Type Department Care Team ([facility] st Contact Info) Description 01/12/2023 Telephone [facility] 230 [place], [place] [phone] Name, MD Andrés 230 [place] [address] Reschedule Social History Tobacco Use Types Packs/Day [...] from pt requesting r/s 01/12/2023 F/U appt script writer attempted to schedule no availability at the moment. documented in this encounter Plan of Treatment Upcoming Encounters Date Type Department Care Team (Late st Contact Info) Description 05/17/2024 1:30 PM EDT Office Visit [facility] OPTOMETRY [address] [place] [address] Carlos, Ijeoma, OD 230 [place] [address] 05/28/2024 1:00 PM EDT Office Visit [facility] ADULT DENTAL 230 [place] [address] Ping, Cyndee [address] [place] [address] 06/15/2024 10:15 AM EDT Office Visit [facility] [address] [place] [address] NameAndrés MD 230 [place] [address] documented as of this encounter Visit Diagnoses Not on filedocumented in this encounter Additional Health Concerns Assessment Noted Time PHQ-9 Depression Total Score: 0 09/22/19 23 2:31 PM EDT documented as of this encounter Care Teams Commercial Cleaner Relationship Specialty Start Date End Date NameAndrés MD [address] [place] [address] PCP - General Family Medicine 07/02/15 Catarina Sorensen, Yordy [address] [place] [address] Pharmacist Internal Medicine 01/27/24 04/02/24 documented as of this encounter
--- OUTSIDE RECORDS SUMMARY | 2024-05-01 19:51 | XMS_ITS | Encounter Summary ---
Author Organization [facility] Address [address] [place] [address] 7 [place] [address] Care Team Providers Care Senior Benefits Analyst Name Role Phone Name, Andrés FIERRO Primary Care Provider [phone] Catarina Sorensen PharmD Unavailable [phone] Encounter Details Date Type Department Care Team (Latest Contact Info) Description 02/14/2019 Abstract [facility] Dental, Provider, DDS Social History [...] 1:30 PM EDT Office Visit [facility] [address] [place] [address] Carlos, Ijeoma, OD 230 [place] [address] 05/28/2024 1:00 PM EDT Office Visit [facility]ENT[facility] 230 [place] [address] Ping, Cyndee 230 [place] [address] 06/15/2024 10:15 AM EDT Office Visit [facility] 230 [place] [address] Name, MD Andrés 230 [place] [address] documented as of this encounter Visit Diagnoses Not on filedocumented in this encounter Care Teams Senior Benefits Analyst Relationship Specialty Start Date End Date Name, MD Andrés 230 [place] [address] PCP - General Family Medicine 07/02/15 Catarina Sorensen PharmD 230 [place] [address] Pharmacist Internal Medicine 01/27/24 04/02/24 documented as of this encounter
--- OUTSIDE RECORDS SUMMARY | 2024-05-01 19:51 | XMS_ITS | Encounter Summary ---
Author Organization [employer] [facility] Address [address] [facility] 7t [place] [address] Care Team Providers Care Bilingual Student Tutor Name Role Phone Name, Andrés FIERRO Primary Care Provider [phone] Catarina Sorensen PharmD Unavailable [phone] Encounter Details Date Type Department Care Team ([facility] Contact Info) Description 06/14/2022 Orders Only [facility] MEDICINE 230 [place], [place] [phone] Name, MD Andrés 230 [place] [address] Social History Tobacco Use Types Packs/Day Years [...] Upcoming Encounters Date Type Department Care Team ([facility] Contact Info) Description 05/17/2024 1:30 PM EDT Office Visit [facility] OPTOMETRY [address] [place], [place] [phone] Carlos, Ijeoma, OD 230 [place] [address] 05/28/2024 1:00 PM EDT Office Visit [facility] ADULT DENTAL 230 [place] [address] Andrés Fengaris 230 [place] [address] 06/15/2024 10:15 AM EDT Office Visit [facility] MED[facility]INE 230 [place] [address] Name, MD Andrés 230 [place] [address] documented as of this encounter Visit Diagnoses Not on filedocumented in this encounter Care Teams Bilingual Student Tutor Relationship Specialty Start Date End Date Name, MD [place] [address] PCP - General Family Medicine 07/02/15 Catarina Sorensen PharmD [address] [place] [address] Pharmacist Internal Medicine 01/27/24 04/02/24 documented as of this encounter
--- OUTSIDE RECORDS SUMMARY | 2024-05-01 19:51 | XMS_ITS | Encounter Summary ---
Author Organization [employer] [facility] Address [address] [facility] 7 [place] [address] Care Team Providers Care Signs And Displays Sales Representative Name Role Phone Name, Andrés FIERRO Primary Care Provider [phone] Catarina Sorensen PharmD Unavailable [phone] Encounter Details Date Type Department Care Team (Latest Contact Info) Description 08/27/2021 Abstract [facility] CONVERSIONS Dental, Provider, DDS Social [...] 1:30 PM EDT Office Visit [facility] OPTOMETRY [address] [place] [address] Carlos, Ijeoma, OD 230 [place] [address] 05/28/2024 1:00 PM EDT Office Visit [facility] ADULT DENTAL 230 [place] [address] Ping, Cyndee [address] [place] [address] 06/15/2024 10:15 AM EDT Office Visit [facility] MEDICINE 230 [place] [address] Name, MD Andrés 230 [place] [address] documented as of this encounter Visit Diagnoses Not on filedocumented in this encounter Care Teams Signs And Displays Sales Representative Relationship Specialty Start Date End Date Name, MD Andrés 230 [place], [place] [phone] PCP - General Family Medicine 07/02/15 Catarina Sorensen PharmD 230 [place] [address] Pharmacist Internal Medicine 01/27/24 04/02/24 documented as of this encounter
--- OUTSIDE RECORDS SUMMARY | 2024-05-01 19:51 | XMS_ITS | Encounter Summary ---
Author Organization [employer] [facility] Address [address] [place] [address] 7 [place] [address] Care Team Providers Care Advisory Application Developer Name Role Phone Name, Andrés FIERRO Primary Care Provider [phone] Catarina Sorensen PharmD Unavailable [phone] Encounter Details Date Type Department Care Team (Latest Contact Info) Description 10/09/2020 Abstract [facility] CONVERSIONS Dental, Provider, DDS Social History [...] Description 05/17/2024 1:30 PM EDT Office Visit [facility] OPTOMETRY [address] [place] [address] Carlos, Ijeoma, OD 230 [place] [address] 05/28/2024 1:00 PM EDT Office Visit [facility] ADULT DENTAL 230 [place] [address] Ping, Cyndee 230 [place] [address] 06/15/2024 10:15 AM EDT Office Visit [facility] MEDICINE 230 [place] [address] Name, MD Andrés 230 [place] [address] documented as of this encounter Visit Diagnoses Not on filedocumented in this encounter Care Teams Advisory Application Developer Relationship Specialty Start Date End Date Name, MD Andrés 230 [place], [place] [phone] PCP - General Family Medicine 07/02/15 Catarina Sorensen PharmD 230 [place] [address] Pharmacist Internal Medicine 01/27/24 04/02/24 documented as of this encounter
--- OUTSIDE RECORDS SUMMARY | 2024-05-01 19:51 | XMS_ITS | Encounter Summary ---
Author Organization [employer] [facility] Address [address] [facility] 7t [place] [address] Care Team Providers Care Belt Glass Sander Name Role Phone Name, Andrés FIERRO Primary Care Provider [phone] Catarina Sorensen PharmD Unavailable [phone] Encounter Details Date Type Department Care Team ([facility] Contact Info) Description 08/05/2022 Abstract [facility] MEDICINE 230 [place], [place] [phone] Name, MD Andrés 230 [place] [address] Social History Tobacco Use Types Packs/Day Years [...] Description 05/17/2024 1:30 PM EDT Office Visit [facility] OPTOMETRY [address] [place], [place] [phone] Carlos, Ijeoma, OD 230 [place], [place] [phone] 05/28/2024 1:00 PM EDT Office Visit [facility] ADULT DENTAL 230 [place] [address] Andrés Fengaris 230 [place], [place] [phone] 06/15/2024 10:15 AM EDT Office Visit [facility] MEDICINE 230 [place] [address] Name, MD Andrés [address] [place] [address] documented as of this encounter Procedures Procedure [...] on filedocumented in this encounter Care Teams Belt Glass Sander Relationship Specialty Start Date End Date Name, MD [place]r[address] [place] [address] PCP - General Family Medicine 07/02/15 Catarina Sorensen, Yordy [address] [place] [address] Pharmacist Internal Medicine 01/27/24 04/02/24 documented as of this encounter
--- OUTSIDE RECORDS SUMMARY | 2024-05-01 19:52 | XMS_ITS | Encounter Summary ---
Author Organization [employer] [facility] Address [address] [facility] 7t [place] [address] Care Team Providers Care Steam Box Operator Name Role Phone Name, Andrés FIERRO Primary Care Provider [phone] Reason for Visit * Reason Comments Med Refill Encounter Details Date Type Department Care Team (Late st Contact Info) Description 04/17/[address] [facility] MEDICINE 230 [place], [place] [phone] Name, MD Andrés 230 [place] [address] Social History Tobacco Use Types Packs/Day Years [...] PM EDT Office Visit [facility] OPTOMETRY [address] [place] [address] Carlos, Ijeoma, OD 230 [place] [address] 05/28/2024 1:00 PM EDT Office Visit [facility] ADULT DENTAL [address] [place] [address] Ping, Cyndee 230 [place] [address] 06/15/2024 10:15 AM EDT Office Visit [facility] MEDICINE 230 [place] [address] NameAndrés MD [address] [place] [address] documented as of this encounter Visit Diagnoses Not on filedocumented in this encounter Additional Health Concerns Assessment Noted Time PHQ-9 Depression Total Score: 0 09/22/19 23 2:31 PM EDT documented as of this encounter Care Teams Steam Box Operator Relationship Specialty Start Date End Date Andrés Hennessy MD [address] [place] [address] PCP - General Family Medicine 07/02/15 documented as of this encounter
--- OUTSIDE RECORDS SUMMARY | 2024-05-01 19:52 | XMS_ITS | Encounter Summary ---
Author Organization [employer] Address [address] [facility] 7t [place] [address] Care Team Providers Care Licensed Marine Engineer Name Role Phone Name, Andrés FIERRO Primary Care Provider [phone] Encounter Details Date Type Department Care Team [...] [facility] [address] [place] [address] Carlos, Ijeoma, OD 230 [place] [address] 05/28/2024 1:00 PM EDT Office Visit [facility] ADULT DENTAL 230 [place] [address] Ping, Cyndee 230 [place] [address] 06/15/2024 10:15 AM EDT Office Visit [facility] MEDICINE 230 [place] [address] NameAndrés MD 230 [place] [address] documented as of this encounter Visit Diagnoses Not on filedocumented in this encounter Additional Health Concerns Assessment Noted Time PHQ-9 Depression Total Score: 0 09/22/19 23 2:31 PM EDT documented as of this encounter Care Teams Licensed Marine Engineer Relationship Specialty Start Date End Date NameAndrés MD 230 [place] [address] PCP - General Family Medicine 07/02/15 documented as of this encounter
--- OUTSIDE RECORDS SUMMARY | 2024-05-01 19:52 | XMS_ITS | Encounter Summary ---
Author Organization [employer] [facility] Address [address] [facility] 7 [place] [address] Care Team Providers Care Outreach Team Member Name Role Phone Name, Andrés FIERRO Primary Care Provider Reason for Referral * Imaging (Routine) - Authorized Specialty Diagnoses / Procedures Referred By Contac t Referred To Contact Radiology Diagnoses Breast cancer screening by mammogram Procedures BI Mammogram Screening Tomosynthesis Bilateral Elise Gonzales CNM 230 [place] [address] Phone: tel: fax: [address] Phone: tel: fax: Referral ID Status Reason Start Date Expiration Date V isits Requested Visits Authorized [id number] Authorized 05/01/2024 05/01/2025 1 1 Reason for Visit * Reason Comments Gynecologic Exam Encounter Details Date Type Department Care Team (Latest Contact Info) Description 05/01/2024 1:45 PM EST Procedure Visit [facility] MEDICINE [address] [place] [address] Elise Gonzales CNM [address] [place] [address] Cervical cancer screening (Primary Dx); Encounter for [...] this encounter Progress Notes * Elise Gonzales, BRAD - 05/01/2024 1:45 PM EST Subjective Patient [...] having any biopsy. No further bleeding. No PRINCIPAL LIBRARIAN concerns today. Hasn't had mammogram in past [...] Description 05/17/2024 1:30 PM EDT Office Visit [facility] OPTOMETRY [address] [place] [address] Ijeoma Gonzalez, OD 230 [place] [address] 05/28/2024 1:00 PM EDT Office Visit [facility] ADULT DENTAL 230 [place] [address] Andrés Fengaris [address] [place] [address] 06/15/2024 10:15 AM EDT Office Visit [facility] MEDICINE [address] [place] [address] NameAndrés MD [address] [place] [address] Scheduled Orders Name Type Priority Associated Diagnoses [...] documented as of this encounter Care Teams Outreach Team Member Relationship Specialty Start Date End Date Name, MD Andrés [address] [place] [address] PCP - General Family Medicine 07/02/15 documented as of this encounter
--- OUTSIDE RECORDS SUMMARY | 2024-05-01 19:52 | XMS_ITS | Encounter Summary ---
Author Organization [employer] Address 75 [facility] 7t [place] [address] Care Team Providers Care Catalyst Supervisor Name Role Phone Name, Andrés FIERRO Primary Care Provider [phone] Encounter Details Date Type Department Care Team (Late st Contact Info) Description 05/01/2024 Orders Only [facility] MEDICINE [address] [place], [place] [phone] Name, MD Andrés 230 [place] [address] Social History Tobacco Use Types Packs/Day Years [...] Description 05/17/2024 1:30 PM EDT Office Visit [facility] OPTOMETRY [address] [place] [address] Carlos, Ijeoma, OD 230 [place] [address] 05/28/2024 1:00 PM EDT Office Visit [facility] ADULT DENTAL [address] [place] [address] Ping, Cyndee [address] [place] [address] 06/15/2024 10:15 AM EDT Office Visit [facility] MEDICINE [address] [place] [address] Name, MD Andrés 230 [place] [address] documented as of this encounter Procedures Procedure Name Priority Date/Time Associated Diagnosis Comments HEPATIC FUNCTION PANEL Routine 05/01/2024 12:30 PM EST LIPID PANEL, STANDARD Routine 05/01/2024 12:30 PM EST documented in this encounter Results * Lipid Panel, Standard (05/01/2024 12:30 PM EST) Triglycerides 66 <150 mg/dL [facility] Comment:Desirable Triglyceri de: less than 150 mg/dLBorderline High Triglyceride 150-199 mg/dLHigh Triglyceride: 200-499 mg/dLVery High Triglyceride: greater than or equal to 5OO mg/dL Cholesterol 174 <200 mg/dL [facility] Comment:Desirable Cholestero l: less than 200 mg/dLBorderline High Cholesterol: 200-239 mg/dLHigh Cholesterol: greater than 239 mg/dL LDL Cholesterol Calculated 98 <100 mg/dL [facility] Comment:Desirable LDL: less than 100 mg/dLNear Optimal/Above Optimal LDL: 110- 129 mg/dLBorderline High LDL: 130-159 mg/dLHigh LDL: 160-189 mg/dLVery High LDL: greater than or equal to 190 mg/dL HDL Cholesterol 63 >40 mg/dL [facility] Comment:Desirable HDL: great er than 40 mg/dL Note: This HDL assay may give artificially low results in patients with liver disease. 05/01/2024 12:3 0 PM EST 05/01/2024 1:06 PM EST Andrés Hennessy MD LAB BLOOD ORDERABLES Final Resul t [facility] [address] [place] [phone] * Hepatic Function Panel (05/01/2024 12:30 PM EST) Bilirubin, Total 0.3 0.0 - 1.0 mg/dL [facility] Bilirubin, Direct 0.1 0.0 - 0.5 mg/dL [facility] Aspartate Amino Transferase 23 5 - 31 U/L [facility] Alanine Aminotransferase 15 0 - 31 U/L [facility] Total Protein 7.6 6.5 - 8.0 g/dL [facility] Albumin Level 4.3 3.5 - 5.0 g/dL [facility] Alkaline Phosphatase 57 39 - 117 U/L [facility] 05/01/2024 12:3 0 PM EST 05/01/2024 1:06 PM EST Andrés Hennessy MD LAB BLOOD ORDERABLES Final Resul t [facility] [address] [place] [address] [phone] documented in this encounter Visit Diagnoses Not on filedocumented in this encounter Additional Health Concerns Assessment Noted Time PHQ-9 Depression Total Score: 0 09/22/19 23 2:31 PM EDT documented as of this encounter Care Teams Catalyst Supervisor Relationship Specialty Start Date End Date Name, MD Andrés [address] [place] [address] PCP - General Family Medicine 07/02/15 documented as of this encounter
--- OUTSIDE RECORDS SUMMARY | 2024-05-01 19:52 | XMS_ITS | Clinical Summary ---
Author Organization [employer] Address 75 [facility] 7 [place] [address] Care Team Providers Care Nursing Surgical Services Director Name Role Phone Name, Andrés FIERRO Primary Care Provider [phone] Allergies No known active allergies Medications metoprolol [...] 25 Active Blood Glucose Monitoring Suppl (FreeStyle Woodruff Lite) w/Device kitIndication s:New onset type 2 [...] notification to Pharmacy)) Blood Glucose Monitoring Suppl (CloudXyle Woodruff Lite) w/Device kitIndication s:New onset type 2 [...] Description 05/01/2024 1:45 PM EST Procedure Visit [facility] MEDICINE [address] [place] [address] Elise Gonzales CNM Cervical cancer screening (Primary Dx); Encounter for immunization; Postmenopausal bleeding; Breast cancer screening by mammogram 05/01/2024 Orders Only [facility] MEDICINE [address] [place] [address] Andrés Hennessy MD 05/01/2024 Travel 04/17/2024 Refill [facility] MED[facility]INE [address] [place] [address] Andrés Hennessy MD 04/12/2024 Refill [facility] MED[facility]INE [address] [place] [address] Andrés Hennessy MD New onset type 2 diabetes mellitus ([facility]) 2024 Telephone [facility] [address] [place] [address] Cheli Espino [place] 03/08/2024 Telephone [facility] MEDICINE [address] [place] [address] Patrica Kc MA jessica recalls 03/06/2024 Refill [facility] [address] [place] [address] Andrés Hennessy MD 02/22/2024 Telephone [facility] MED[facility]INE [address] [place] [address] Andrés Hennessy MD Med Refill; Apr Recall [...] Description 05/17/2024 1:30 PM EDT Office Visit [facility] OPTOMETRY [address] [place] [address] Carlos, Ijeoma, OD [address] [place] [address] 05/28/2024 1:00 PM EDT Office Visit [facility] ADULT DENTAL [address] [place] [address] Ping, Cyndee [address] [place] [address] 06/15/2024 10:15 AM EDT Office Visit [facility] MEDICINE [address] [place] [address] Name, MD Andrés [address] [place] [address] Health Maintenance Due Date Last Done Comments [...] Bilirubin, Total 0.3 0.0 - 1.0 mg/dL [facility] Bilirubin, Direct 0.1 0.0 - 0.5 mg/dL [facility] Aspartate Amino Transferase 23 5 - 31 U/L [facility] Alanine Aminotransferase 15 0 - 31 U/L [facility] Total Protein 7.6 6.5 - 8.0 g/dL [facility] Albumin Level 4.3 3.5 - 5.0 g/dL [facility] Alkaline Phosphatase 57 39 - 117 U/L [facility] 05/01/2024 12:3 0 PM EST 05/01/2024 1:06 PM EST us Andrés Name MD LAB BLOOD ORDERABLES Final Resul t [facility] [address] [place] [address] [phone] * Lipid Panel, Standard (05/01/2024 12:30 PM EST) Triglycerides 66 <150 mg/dL [facility] Comment:Desirable Triglyceri de: less than 150 mg/dLBorderline High Triglyceride 150-199 mg/dLHigh Triglyceride: 200-499 mg/dLVery High Triglyceride: greater than or equal to 5OO mg/dL Cholesterol 174 <200 mg/dL [facility] Comment:Desirable Cholestero l: less than 200 mg/dLBorderline High Cholesterol: 200-239 mg/dLHigh Cholesterol: greater than 239 mg/dL LDL Cholesterol Calculated 98 <100 mg/dL [facility] Comment:Desirable LDL: less than 100 mg/dLNear Optimal/Above Optimal LDL: 110- 129 mg/dLBorderline High LDL: 130-159 mg/dLHigh LDL: 160-189 mg/dLVery High LDL: greater than or equal to 190 mg/dL HDL Cholesterol 63 >40 mg/dL [facility] Comment:Desirable HDL: great er than 40 mg/dL Note: This HDL assay may give artificially low results in patients with liver disease. 05/01/2024 12:3 0 PM EST 05/01/2024 1:06 PM EST us Andrés Hennessy MD LAB BLOOD ORDERABLES Final Resul t [facility] [address] [place] [phone] * (ABNORMAL) POCT HGB A1C (04/03/2024 1:51 PM EST) Hemoglobin A1C 6.1(A) 4.0 - 6.0 % QC Media Lot # [id number] Blood 04/03/2024 1:51 PM EST us Andrés Hennessy MD POINT OF CARE TEST ENTER/EDIT OR DERABLES Final Result * Albumin, Random Urine W/Creatinine (01/05/2024 10:30 AM EDT) Creatinine, Urine 226.01 mg/dL [facility] Microalbumin Urine 17.0 mg/L [facility] Microalbum Creatinine Ratio Ur 7.5 <30 ug/mg cr [facility] Comment:Albumin/Creatinine R atio Reference Ranges: Normal: < 30 ug/mg creatinine Microalbuminuria: 30 - 300 ug/mg creatinineClinical Albuminuria: > 300 ug/mg creatinine Urine (Urine, Random) 01/05/2024 10:30 AM EDT 01/05/2024 10:56 AM EDT us Andrés Hennessy MD LAB URINE ORDERABLES Final Resul t [facility] [address] [place] [phone] [phone] * Mammography Report 1 (12/18/2021 3:27 [...] HPV mRNA E6/E7 Not Detected NOT DETECTED [facility] Comment: This test was performed using the APTIMA(R) HPV Assay ([employer] This assay detects E6/E7 viral messenger RNA (mRNA) from 14 high-risk HPV types (16,18,31,33,35,39,45,51, 52,56,58,59,66,68). For additional information please refer to: http://education.Meshify/faq/TRO108m4 (This link is being provided for informational/ educational purposes only.) The analytical performance characteristics of this assay have been determined by [employer] [place], [place]. The modifications have not been cleared or approved by the FDA. This assay has been validated pursuant to the CLIA regulations and is used for clinical purposes. Test Performed by [facility] [employer] [place], [address] [place] [address] Amor Ayala M.D., Ph.D., Director of Laboratories , CLIA [id number] Please note: ??Effective 11/17/2015, HPV testing will be performed using [employer]'s APTIMA test which targets mRNA. Detecting mRNA instead of DNA, as in older methods, offers significant improvements in specificity. 04/26/2019 9:28 AM EST Elise Gonzales CNM HISTORICAL/NON ORDERABLE LABS Final Result [facility] [address] * Pap Smear (04/26/2019 12:00 AM EST) Historical Provider MD HEALTH MAINTENANCE Final Result * Hm Colonoscopy (12/09/2016 3:46 PM EDT) Colonoscopy Normal Normal Narrative Shirley Bass - 12/09/2016 3:46 PM EDT Recommended 10 year follow up Historical Provider HEALTH MAINTENANCE Final Result from Last 3 Months or Most Recently Relevant to Health Maintenance Insurance - [facility] - [facility] Care Teams Nursing Surgical Services Director Relationship Specialty Start Date End Date Name, MD Andrés [address] [place] [address] PCP - General Family Medicine 07/02/15
--- OUTSIDE RECORDS SUMMARY | 2024-05-01 19:52 | XMS_ITS | Encounter Summary ---
Author Organization [employer] Address 75 [facility] 7t [place] [address] Care Team Providers Care Brand Analyst Name Role Phone Name, Andrés FIERRO Primary Care Provider [phone] Reason for Visit * Reason Comments Med Refill Encounter Details Date Type Department Care Team (Late st Contact Info) Description 04/12/2024 Refill [facility] MEDICINE [address] [place], [place] [phone] Name, MD Andrés [address] [place] [address] New onset type 2 diabetes mellitus (CMS/HCC) [...] Description 05/17/2024 1:30 PM EDT Office Visit [facility] OPTOMETRY [address] [place] [address] Carlos, Ijeoma, OD [address] [place] [address] 05/28/2024 1:00 PM EDT Office Visit [facility] ADULT DENTAL [address] [place] [address] Ping, Cyndee [address] [place] [address] 06/15/2024 10:15 AM EDT Office Visit [facility] MEDICINE [address] [place] [address] NameAndrés MD [address] [place] [address] documented as of this encounter Visit Diagnoses Diagnosis New onset type 2 diabetes mellitus (CMS/HCC) documented in this encounter Additional Health Concerns Assessment Noted Time PHQ-9 Depression Total Score: 0 09/22/19 23 2:31 PM EDT documented as of this encounter Care Teams Brand Analyst Relationship Specialty Start Date End Date Andrés Hennessy MD [address] [place] [address] PCP - General Family Medicine 4/27/16 documented as of this encounter
[2024-05-08 11:07] LABS: HPV Genotype 16 Negative (Negative); HPV Genotype 18 Negative (Negative); HPV High Risk Negative (Negative)
== END 2024-05-01 16:45 | disposition home or self-care (01) ==
LOC: HO.HHCLNP 16:44
PROVIDERS: Visit Provider Advanced Practice Midwife
DX: Z12.4 Encounter for screening for malignant neoplasm of cervix (principal); Z11.51 Encounter for screening for human papillomavirus (HPV); Z13.6 Encounter for screening for cardiovascular disorders
CPT/HCPCS: 36415; 80061; 80076; 87626; 88175

== ENCOUNTER 2024-05-28 14:17 | Outpatient (REF) | payer OTHER, SELFPAY ==
--- NOTE | ~2024-05-28 | US_ITS ---
EXAMINATION: US PELVIS TRANSABDOMINAL AND TRANSVAGINAL HISTORY: postmenopausal bleeding COMPARISON: Comparison is made with the prior examination dated 05/09/2019. TECHNIQUE: Transabdominal and endovaginal real-time 2D sotomayor-scale ultrasound was performed. FINDINGS: Uterus: The uterus is normal in size, measuring 6.8 x 3.1 x 4.4 cm. Myometrium has a normal echotexture. No fibroids are identified. Endometrium: The endometrial stripe measures 4 mm in thickness. Again seen are calcifications in the endometrium. Right ovary: The right ovary is not identified. Left ovary: The left ovary is not identified. Pelvic fluid: none. US/US pelvic and transvaginal IMPRESSION: Endometrial calcifications without endometrial thickening. The ovaries are not identified. Electronically signed by: Real Lopez MD 05/28/2024 03:05 PM EDT
== END 2024-05-28 14:18 | disposition home or self-care (01) ==
LOC: HO.US 14:17
PROVIDERS: PCP Internal Medicine Geriatric Medicine; Visit Provider Advanced Practice Midwife
DX: N95.0 Postmenopausal bleeding (principal)
CPT/HCPCS: 76830; 76856

== ENCOUNTER → 2024-05-28 14:20 | Outpatient (BNV) | payer OTHER, SELFPAY | PROVIDERS: PCP Internal Medicine Geriatric Medicine; Visit Provider Radiology Diagnostic Radiology | DX: N95.0 Postmenopausal bleeding (principal) | CPT/HCPCS: 76830; 76856 ==

== ENCOUNTER 2025-01-25 20:41 | Emergency (ER) | payer OTHER, SELFPAY ==
[2025-01-25 20:54] VITALS: BP 135/63; PULSE 69; RESP 17; TEMP 36.7; O2SAT 99; BMI 29.0
--- OUTSIDE RECORDS SUMMARY | 2025-01-25 21:40 | XMS_ITS | Encounter Summary ---
Author Organization [employer] [facility] Address [address] [place] [address] 7 [place] [address] Care Team Providers Care Deli Manager Name Role Phone Name, Andrés FIERRO Primary Care Provider [phone] Catarina Sorensen PharmD Unavailable [phone] Encounter Details Date Type Department Care Team (Latest Contact Info) Description 08/27/2021 Abstract [facility] CONVERSIONS Dental, Provider, DDS Social History [...] Care Team (Late st Contact Info) Description 02/12/2025 12:45 PM EST Office Visit [facility] ADULT DENTAL [address] [place] [address] Ping, Cyndee [address] [place] [address] 04/02/2025 2:45 PM EST Office Visit [facility] MEDICINE [address] [place] [address] Name, MD Andrés [address] [place] [address] 05/20/2025 2:30 PM EDT Office Visit [facility] OPTOMETRY [address] [place] [address] Carlos, Ijeoma, OD [address] [place] [address] documented as of this encounter Visit Diagnoses Not on filedocumented in this encounter Care Teams Deli Manager Relationship Specialty Start Date End Date Name, MD Andrés [address] [place] [address] PCP - General Family Medicine 07/02/15 Catarina Sorensen PharmD [address] [place] [address] Pharmacist Internal Medicine 01/27/24 04/02/24 documented as of this encounter
--- OUTSIDE RECORDS SUMMARY | 2025-01-25 21:40 | XMS_ITS | Encounter Summary ---
Author Organization [employer] Address 75 [facility] 7t [place] [address] Care Team Providers Care Automation Developer Name Role Phone Name, Andrés FIERRO Primary Care Provider Catarina Sorensen PharmD Unavailable [phone] Encounter Details Date Type Department Care Team (Late Contact Info) Description 08/05/2022 Abstract [facility] MEDICINE [address] [place] [address] Name, MD Andrés [address] [place] [phone] Social History Tobacco Use Types Packs/Day Years [...] Department Care Team (Late Contact Info) Description 02/12/2025 12:45 PM EST Office Visit [facility] ADULT DENTAL [address] [place] [address] [phone] Cyndee Feng [address] [place] [address] 04/02/2025 2:45 PM EST Office Visit [facility] MEDICINE [address] [place] [address] Name, MD Andrés [address] [place] [address] 05/20/2025 2:30 PM EDT Office Visit [facility] OPTOMETRY [address] [place] [address] Carlos, Ijeoma, OD [address] [place] [address] documented as of this encounter Procedures Procedure Name Priority Date/Time Associated Diagnosis Comments PAP/HPV Routine 04/26/2019 12:00 AM EST COLONOSCOPY Routine 12/09/2016 3:46 PM EDT documented in this encounter Results * Pap Smear (04/26/2019 12:00 AM EST) us Historical Provider HEALTH MAINTENANCE Final Result * Colonoscopy (12/09/2016 3:46 PM EDT) Colonoscopy Normal Normal Narrative Shirley Bass - 12/09/2016 3:46 PM EDT Recommended 10 year follow up us Historical Provider HEALTH MAINTENANCE Final Result documented in this encounter Visit Diagnoses Not on filedocumented in this encounter Care Teams Automation Developer Relationship Specialty Start Date End Date Name, MD [place] [address] PCP - General Family Medicine 07/02/15 Catarina Sorensen, EmmanuelD [address] [place] [address] Pharmacist Internal Medicine 01/27/24 04/02/24 documented as of this encounter
--- OUTSIDE RECORDS SUMMARY | 2025-01-25 21:40 | XMS_ITS | Encounter Summary ---
Author Organization [employer] Address 75 [facility] 7t [place] [address] Care Team Providers Care Box Toe Cementer Name Role Phone Name, Andrés FIERRO Primary Care Provider [phone] Catarina Sorensen PharmD Unavailable [phone] Encounter Details Date Type Department Care Team (Late Contact Info) Description 06/14/2022 Orders Only [facility] MEDICINE [address] [place] [address] Name, MD Andrés [address] [place] [phone] Social History Tobacco Use Types Packs/Day Years [...] Description 02/12/2025 12:45 PM EST Office Visit [facility] ADULT DENTAL [address] [place] [address] [phone] Cyndee Feng [address] [place] [address] 04/02/2025 2:45 PM EST Office Visit [facility] MEDICINE [address] [place] [address] Name, MD Andrés [address] [place] [address] 05/20/2025 2:30 PM EDT Office Visit [facility] OPTOMETRY [address] [place] [address] Carlos, Ijeoma, OD [address] [place] [address] documented as of this encounter Visit Diagnoses Not on filedocumented in this encounter Care Teams Box Toe Cementer Relationship Specialty Start Date End Date Name, MD Andrés Nick[place], [place] [phone] PCP - General Family Medicine 07/02/15 Catarina Sorensen PharmD [address] [place] [address] [phone] Pharmacist Internal Medicine 01/27/24 04/02/24 documented as of this encounter
--- OUTSIDE RECORDS SUMMARY | 2025-01-25 21:40 | XMS_ITS | Encounter Summary ---
Author Organization [employer] Address 75 [facility] 7t [place] [address] Care Team Providers Care Green Meat Packer Name Role Phone Name, Andrés FIERRO Primary Care Provider [phone] Catarina Sorensen PharmD Unavailable [phone] Reason for Visit * Reason Onset Date Comments Reschedule 01/12/2023 Encounter Details Date Type Department Care Team (Late st Contact Info) Description 01/12/2023 Telephone [facility] MEDICINE [address] [place], [place] [phone] Name, MD Andrés [address] [place] [address] Reschedule Social History Tobacco Use Types Packs/Day [...] from pt requesting r/s 01/12/2023 F/U appt selling underwriter attempted to schedule no availability at the moment. documented in this encounter Plan of Treatment Upcoming Encounters Date Type Department Care Team (Late st Contact Info) Description 02/12/2025 12:45 PM EST Office Visit [facility] ADULT DENTAL [address] [place] [address] Ping, Cyndee [address] [place] [address] 04/02/2025 2:45 PM EST Office Visit [facility] MEDICINE [address] [place] [address] Andrés Hennessy MD [address] [place] [address] 05/20/2025 2:30 PM EDT Office Visit [facility] OPTOMETRY [address] [place] [address] Carlos, Ijeoma, OD [address] [place] [address] documented as of this encounter Visit Diagnoses Not on filedocumented in this encounter Additional Health Concerns Assessment Noted Time PHQ-9 Depression Total Score: 0 09/22/19 23 2:31 PM EDT documented as of this encounter Care Teams Green Meat Packer Relationship Specialty Start Date End Date Andrés Hennessy MD [address] [place] [address] [place] [address] PCP - General Family Medicine 07/02/15 Catarina Sorensen PharmD [address] [place] [address] Pharmacist Internal Medicine 01/27/24 04/02/24 documented as of this encounter
--- OUTSIDE RECORDS SUMMARY | 2025-01-25 21:40 | XMS_ITS | Encounter Summary ---
Author Organization [employer] [facility] Address [address] [place] [address] 7 [place] [address] Care Team Providers Care Rn Outpatient Surgery Name Role Phone Name, Andrés FIERRO Primary Care Provider [phone] Catarina Sorensen PharmD Unavailable [phone] Encounter Details Date Type Department Care Team (Latest Contact Info) Description 02/14/2019 Abstract [facility] CONVERSIONS Dental, Provider, DDS Social History [...] Description 02/12/2025 12:45 PM EST Office Visit [facility] ADULT DENTAL [address] [place] [address] Ping, Cyndee [address] [place] [address] 04/02/2025 2:45 PM EST Office Visit [facility] MEDICINE [address] [place] [address] Name, MD Andrés [address] [place] [address] 05/20/2025 2:30 PM EDT Office Visit [facility] OPTOMETRY [address] [place] [address] Carlos, Ijeoma, OD [address] [place] [address] documented as of this encounter Visit Diagnoses Not on filedocumented in this encounter Care Teams Rn Outpatient Surgery Relationship Specialty Start Date End Date Name, MD Andrés [address] [place] [address] PCP - General Family Medicine 07/02/15 Catarina Sorensen PharmD [address] [place] [address] Pharmacist Internal Medicine 01/27/24 04/02/24 documented as of this encounter
--- OUTSIDE RECORDS SUMMARY | 2025-01-25 21:40 | XMS_ITS | Encounter Summary ---
Author Organization [employer] Address 75 [facility] 7t [place] [address] Care Team Providers Care Comb Winder Name Role Phone Name, Andrés FIERRO Primary Care Provider [phone] Reason for Visit * Reason Comments Med Refill Encounter Details Date Type Department Care Team (Late st Contact Info) Description 07/24/[address] [facility] ADULT DENTAL [address] [place] [address] Yanick Delong DDS [address] [place] [address] Periodontal disease Social History Tobacco Use Types Packs/Day Years [...] Description 02/12/2025 12:45 PM EST Office Visit [facility] ADULT DENTAL [address] [place] [address] Ping, Cyndee [address] [place] [address] 04/02/2025 2:45 PM EST Office Visit [facility] MEDICINE [address] [place] [address] NameAndrés MD [address] [place] [address] 05/20/2025 2:30 PM EDT Office Visit [facility] OPTOMETRY [address] [place] [address] Carlos, Ijeoma, OD [address] [place] [address] documented as of this encounter Visit Diagnoses Diagnosis Periodontal disease Unspecified gingival and periodontal disease documented in this encounter Additional Health Concerns Assessment Noted Time PHQ-9 Depression Total Score: 0 09/22/19 23 2:31 PM EDT documented as of this encounter Care Teams Comb Winder Relationship Specialty Start Date End Date NameAndrés MD [address] [place] [address] PCP - General Family Medicine 07/02/15 documented as of this encounter
--- OUTSIDE RECORDS SUMMARY | 2025-01-25 21:40 | XMS_ITS | Encounter Summary ---
Author Organization [employer] Address 75 [facility] 7t [place] [address] Care Team Providers Care Resource Paraprofessional Name Role Phone Name, Andrés FIERRO Primary Care Provider [phone] Reason for Visit * Reason Comments Med Refill Encounter Details Date Type Department Care Team (Late st Contact Info) Description 05/04/2024 Refill [facility] ADULT DENTAL [address] [place] [address] Yanick Delong DDS [address] [place] [address] Periodontal disease Social History Tobacco Use Types [...] Description 02/12/2025 12:45 PM EST Office Visit [facility] ADULT DENTAL [address] [place] [address] Ping, Cyndee [address] [place] [address] 04/02/2025 2:45 PM EST Office Visit [facility] MEDICINE [address] [place] [address] NameAndrés MD [address] [place] [address] 05/20/2025 2:30 PM EDT Office Visit [facility] OPTOMETRY [address] [place] [address] Carlos, Ijeoma, OD [address] [place] [address] documented as of this encounter Visit Diagnoses Diagnosis Periodontal disease Unspecified gingival and periodontal disease documented in this encounter Additional Health Concerns Assessment Noted Time PHQ-9 Depression Total Score: 0 09/22/19 23 2:31 PM EDT documented as of this encounter Care Teams Resource Paraprofessional Relationship Specialty Start Date End Date NameAndrés MD [address] [place] [address] PCP - General Family Medicine 07/02/15 documented as of this encounter
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
--- OUTSIDE RECORDS SUMMARY | 2025-01-25 21:40 | XMS_ITS | Encounter Summary ---
Author Organization [employer] Address [address] [place] [address] Care Team Providers Care Brickmason Name Role Phone Name, Andrés FIERRO Primary Care Provider [phone] Encounter Details Date Type Department Care Team (Late st Contact Info) Description 01/22/2025 Telephone [facility] [address] [place], [place] [phone] Dominguez Vieiracy [place] Social History Tobacco Use Types Packs/Day Years Used Date Smoking Tobacco: Never Passive Smoke Exposure: Never Smokeless Tobacco: Never Alcohol Use Standard [...] encounter Miscellaneous Notes * Telephone Encounter - Cely Vieira [place] - 01/22/2025 10:19 AM EST Telephone call to patient to schedule a recall appointment. No answer, Left voicemail to return call to clinic.. Recall letter sent. 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 With: Christian Please schedule appointment above if patient returns call documented in this encounter Plan of Treatment Upcoming Encounters Date Type Department Care Team (Late st Contact Info) Description 02/12/2025 12:45 PM EST Office Visit [facility] [address] [place] [address] Ping, Cyndee [address] [place] [address] 04/02/2025 2:45 PM EST Office Visit [facility] [address] [place] [address] Name, MD Andrés [address] [place] [address] 05/20/2025 2:30 PM EDT Office Visit [facility] [address] [place] [address] Ijeoma Gonzalez, OD [address] [place] [address] documented as of this encounter Visit Diagnoses Not on filedocumented in this encounter Additional Health Concerns Assessment Noted Time PHQ-9 Depression Total Score: 0 09/22/19 23 2:31 PM EDT documented as of this encounter Care Teams Brickmason Relationship Specialty Start Date End Date Name, MD Andrés [address] [place] [address] PCP - General Family Medicine 07/02/15 documented as of this encounter
--- OUTSIDE RECORDS SUMMARY | 2025-01-25 21:40 | XMS_ITS | Encounter Summary ---
Author Organization [employer] Address [address] [facility] 7t [place] [address] Care Team Providers Care Real Estate Leasing Manager Name Role Phone Name, Andrés FIERRO Primary Care Provider [phone] Reason for Visit * Reason Comments Med Refill Encounter Details Date Type Department Care Team (Late st Contact Info) Description 08/10/2024 Refill [facility] [address] [place] [address] Yanick Delong DDS [address] [place] [address] Periodontal disease Social History Tobacco Use Types [...] Description 02/12/2025 12:45 PM EST Office Visit [facility] [address] [place] [address] Ping, Cyndee [address] [place] [address] 04/02/2025 2:45 PM EST Office Visit [facility] [address] [place] [address] NameAndrés MD [address] [place] [address] 05/20/2025 2:30 PM EDT Office Visit [facility] [address] [place] [address] Carlos, Ijeoma, OD [address] [place] [address] documented as of this encounter Visit Diagnoses Diagnosis Periodontal disease Unspecified gingival and periodontal disease documented in this encounter Additional Health Concerns Assessment Noted Time PHQ-9 Depression Total Score: 0 09/22/19 23 2:31 PM EDT documented as of this encounter Care Teams Real Estate Leasing Manager Relationship Specialty Start Date End Date Andrés Hennessy MD [address] [place] [phone] PCP - General Family Medicine 07/02/15 documented as of this encounter
--- OUTSIDE RECORDS SUMMARY | 2025-01-25 21:40 | XMS_ITS | Encounter Summary ---
Author Organization [employer] [facility] Address [address] [place] [address] [address] [place] [address] Care Team Providers Care Shaft Tender Name Role Phone Name, Andrés FIERRO Primary Care Provider [phone] Catarina Sorensen PharmD Unavailable [phone] Encounter Details Date Type Department Care Team (Latest Contact Info) Description 10/09/2020 Abstract [facility] CONVERSIONS Dental, Provider, DDS Social History [...] Description 02/12/2025 12:45 PM EST Office Visit [facility] ADULT DENTAL [address] [place] [address] Ping, Cyndee [address] [place] [address] 04/02/2025 2:45 PM EST Office Visit [facility] [address] [place] [address] Name, MD Andrés [address] [place] [address] 05/20/2025 2:30 PM EDT Office Visit [facility] OPT[facility] [address] [place] [address] Carlos, Ijeoma, OD [address] [place] [address] documented as of this encounter Visit Diagnoses Not on filedocumented in this encounter Care Teams Shaft Tender Relationship Specialty Start Date End Date Name, MD Andrés [address] [place] [address] PCP - General Family Medicine 07/02/15 Catarina Sorensen PharmD [address] [place] [address] Pharmacist Internal Medicine 01/27/24 04/02/24 documented as of this encounter
--- OUTSIDE RECORDS SUMMARY | 2025-01-25 21:40 | XMS_ITS | Encounter Summary ---
Author Organization [email or web address] [facility] Address [address] [place] [address] [address] [place] [address] Care Team Providers Care Under Baster Name Role Phone Name, Andrés FIERRO Primary Care Provider [phone] Catarina Sorensen PharmD Unavailable [phone] Reason for Visit * Reason Comments Med Refill Encounter Details Date Type Department Care Team (Late st Contact Info) Description 10/08/2022 Refill [facility] [address] [place] [phone] Name, MD Andrés [address] [place] [phone] Social History Tobacco Use Types Packs/Day Years [...] Visit [facility] [address] [place] [phone] Andrés Fengaris [address] [place] [address] 04/02/2025 2:45 PM EST Office Visit [facility] [address] [place] [phone] Name, MD Andrés [address] [place], [place] [phone] 05/20/2025 2:30 PM EDT Office Visit [facility] [address] [place], [place] [phone] Carlos, Ijeoma, OD [address] [place], [place] [phone] documented as of this encounter Visit Diagnoses Not on filedocumented in this encounter Additional Health Concerns Assessment Noted Time PHQ-9 Depression Total Score: 0 09/22/19 23 2:31 PM EDT documented as of this encounter Care Teams Under Baster Relationship Specialty Start Date End Date Name, MD Andrés [address] [place] [phone] PCP - General Family Medicine 07/02/15 Catarina Sorensen PharmD [address] [place] [phone] Pharmacist Internal Medicine 01/27/24 04/02/24 documented as of this encounter
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
[2025-01-25 22:57] VITALS: BP 105/69; PULSE 60; RESP 16; TEMP 36.6; O2SAT 99
[2025-01-25 23:07] VITALS: BP 105/69; PULSE 60; RESP 16; TEMP 36.6; O2SAT 99
== END 2025-01-25 23:08 | disposition home or self-care (01) ==
PROVIDERS: Emergency Provider Emergency Medicine; PCP Internal Medicine Geriatric Medicine
DX: S13.4XXA Sprain of ligaments of cervical spine, initial encounter (principal); M54.2 Cervicalgia; V43.52XA Car driver injured in collision with other type car in traffic accident, initial encounter; Y93.9 Activity, unspecified; Y92.410 Unspecified street and highway as the place of occurrence of the external cause; Y99.8 Other external cause status
CPT/HCPCS: 96372; 99284; J1885